=== PATIENT | male | born 1945 | race Caucasian/White ===

== ENCOUNTER → 2020-04-21 | Outpatient (CLI) | payer MEDICARE, BC ==
--- NOTE | 2020-04-21 11:32 | XR ---
EXAMINATION TYPE: XR abdomen 1V DATE OF EXAM: 04/21/2020 11:26 AM CLINICAL HISTORY: Renal stone. TECHNIQUE: Two supine KUB images of the abdomen are obtained. COMPARISON: None. FINDINGS: There is 2 to 3 mm calculus mid pole level right kidney just below the 12th rib. Slightly s uboptimal evaluation of other calculi as there is overlying colonic fecal material noted. Overall nonobstructive bowel gas pattern. Moderate multilevel spurring and disc space narrowing in th e thoracolumbar spine is present. IMPRESSION: As above.
== END | disposition home or self-care (01) ==
LOC: RADXRMAIN 11:13
PROVIDERS: ATTEND Urology
DX: N20.0 Calculus of kidney (principal)
CPT/HCPCS: 74018

== ENCOUNTER 2023-01-25 07:18 | Day surgery (SDC) | payer MEDICARE, BC ==
[2023-01-23 09:07] VITALS: BMI 31.1
--- NOTE | 2023-01-25 06:45 | P.GSHP ---
History of Present Illness H&P Date: 01/25/23 Chief Complaint: Right renal colic The patient is a 77-year-old white male with a history of urolithiasis. He has undergone ureteroscopic removal of calculi on 2 previous occasions. He now presents with a six-week history of right-sided flank discomfort. A KUB x-ray was negative, but computed tomography scan showed a 2 mm right distal ureteral calculus at the ureterovesical junction as well as two right renal calculi (4 and 10 mm). He has elected to undergo ureteroscopic removal of his calculi. - Constitutional Constitutional: Denies chills, Denies fever - Genitourinary (Male) Genitourinary: Reports flank pain, Reports kidney stones, Denies hematuria Past Medical History Past Medical History: GERD/Reflux, Hyperlipidemia, Hypertension Additional Past Medical History / Comment(s): KIDNEY STONES History of Any Multi-Drug Resistant Organisms: None Reported Past Surgical History: Appendectomy, Orthopedic Surgery Additional Past Surgical History / Comment(s): NECK SX ,LT SINUS SX , VARICOSE VEIN SX ,KIDNEY STONE SX X 2 ,COLONOSCOPY BILAT CATARACTS REMOVED WITH LENS IMPLANTS Past Anesthesia/Blood Transfusion Reactions: No Reported Reaction Smoking Status: Former smoker - Past Family History Father Family Medical History: Cancer Mother Family Medical History: Cancer Medications and Allergies Home Medications Medication Instructions Recorded Confirmed Type Fluticasone Nasal [place] [Flonase 2 spray EA NOSTRIL DAILY 01/23/23 01/23/23 History Nasal [place]] Omeprazole 20 mg PO DAILY 01/23/23 01/23/23 History Potassium Citrate [Urocit-K] 1 tab PO BID 01/23/23 01/23/23 History Simvastatin [Zocor] 5 mg PO HS 01/23/23 01/23/23 History Tamsulosin HCl [Flomax] 0.8 mg PO HS 01/23/23 01/23/23 History amLODIPine [Norvasc] 10 mg PO DAILY 01/23/23 01/23/23 History Allergies Allergy/AdvReac Type Severity Reaction Status Date / Time adhesive tape Allergy Rash/Hives Verified 01/23/23 08:59 OLIVIA Inhibitors AdvReac Cough Verified 01/23/23 08:59 acetaminophen [From [place]] AdvReac SEVERE Verified 01/23/23 08:59 CONSTIPATION hydrocodone [From [place]] AdvReac SEVERE Verified 01/23/23 08:59 CONSTIPATION Surgical - Exam - General well developed, well nourished, no distress - Respiratory normal respiratory effort - Abdomen Abdomen: soft, non tender, no guarding, no rigid, no rebound - Genitourinary normal penis with no external lesions, testicles non-tender - Psychiatric oriented to time, oriented to person, oriented to place, speech is normal, memory intact Results - Imaging CT scan - abdomen: report reviewed Assessment and Plan (1) Calculus of ureter Status: Acute Code(s): N20.1 - CALCULUS OF URETER SNOMED Code(s): 24971800 (2) Calculus of kidney Status: Acute Code(s): N20.0 - CALCULUS OF KIDNEY SNOMED Code(s): 66166122 Plan: Cystoscopy, right retrograde pyelogram, right ureteroscopy with Holmium laser lithotripsy and stone basketing, right ureteral stent insertion. The patient is aware of potential risks, which include anesthesia, bleeding, infection, ureteral injury, and inability to remove the calculi in their entirety.
[2023-01-25] MEDS ORDERED: ONDANSETRON 4 MG/2 ML VIAL IVP ONE (07:27)
[2023-01-25] MEDS ORDERED: HYDROmorphone 0.5 MG/0.5 ML SYRINGE IVP PRN (07:27)
[2023-01-25] MEDS ORDERED: DEXAMETHASONE SOD PHOSPHATE 4 MG/ML 1 ML VIAL IV ONE (07:27)
[2023-01-25] MEDS ORDERED: MIDAZOLAM 2 MG/2 ML VIAL IV PRN (07:27)
[2023-01-25] MEDS ORDERED: LACTATED RINGERS 1,000 ML IV SCH (07:27)
[2023-01-25] MEDS ORDERED: LIDOCAINE 1% (10MG/ML) FOR IV START INTRADERMA PRN (07:27)
--- NOTE | 2023-01-25 07:49 | XR ---
EXAMINATION TYPE: XR KUB DATE OF EXAM: 01/25/2023 Comparison: 04/21/2020 Clinical History: 77-year-old male N20.1 N20.0 Right ureteral renal calculi Findings: 2 calcifications in the right mid abdomen measuring 1.0 and 0.5 cm appears larger compared to the exam. 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 Moderate stool burden. Nonobstructive bowel gas pattern. Impression: A couple right renal calculi suggested measuring 10 mm and 5 mm.
[2023-01-25] MEDS ORDERED: GLYCOPYRROLATE 0.2 MG/ML 2 ML VIAL ONE (09:39)
[2023-01-25] MEDS ORDERED: PROPOFOL 10 MG/ML 20 ML VIAL IV ONE (09:39)
[2023-01-25] MEDS ORDERED: LIDOCAINE 2% INJ 20 MG/ML (2 ML VIAL) ONE (09:39)
[2023-01-25] MEDS ORDERED: ROCURONIUM 10 MG/ML (5 ML VIAL) IV ONE (09:39)
[2023-01-25] MEDS ORDERED: fentaNYL (PF) 50 MCG/ML 2 ML AMP ONE (09:39)
[2023-01-25] MEDS ORDERED: MIDAZOLAM 2 MG/2 ML VIAL ONE (09:39)
[2023-01-25] MEDS ORDERED: SUCCINYLCHOLINE CHLORIDE 200 MG/10 ML VIAL IV ONE (09:39)
[2023-01-25] MEDS ORDERED: NEOSTIGMINE 1 MG/ML 10 ML VIAL ONE (09:39)
[2023-01-25] MEDS ORDERED: IOPAMIDOL-370 100ML BTL MISCELLANE ONE (09:44)
[2023-01-25] MEDS ORDERED: LACTATED RINGERS 1,000 ML IV ONE (10:37)
[2023-01-25 11:22] VITALS: TEMP 96.9
--- NOTE | 2023-01-25 12:14 | FL ---
EXAMINATION TYPE: FL guidance operating room DATE OF EXAM: 01/25/2023 FLUOROSCOPY Fluoroscopy time of 1 minute 33 seconds was used during urologic intervention for right kidney stone. 12 image/s document/s the procedure. Total DAP: 6.2
[2023-01-25 12:22] VITALS: RESP 18
[2023-01-25 13:07] VITALS: BP 154/78; PULSE 78
--- NOTE | 2023-01-25 13:18 | P.OP ---
Date of Procedure: 01/25/23 Preoperative Diagnosis: Right ureteral calculus, right renal calculi Postoperative Diagnosis: Right renal calculi Procedure(s) Performed: Cystoscopy, bilateral retrograde pyelograms, right ureteroscopy with Holmium laser lithotripsy and stone basketing, right ureteral stent insertion Anesthesia: MANUEL Surgeon: Tamir Hoyt Estimated Blood Loss (ml): 10 IV fluids (ml): 900 Pathology: other (Calculus fragments, sent for chemical analysis) Condition: stable Disposition: PACU Indications for Procedure: The patient is a 77-year-old white male with a history of urolithiasis. He has undergone ureteroscopic removal of calculi on 2 previous occasions. He now presents with a six-week history of right-sided flank discomfort. A KUB x-ray was negative, but computed tomography scan showed a 2 mm right distal ureteral calculus at the ureterovesical junction as well as two right renal calculi (4 and 10 mm). He has elected to undergo ureteroscopic removal of his calculi. Operative Findings: 2 right renal calculi, both fragmented and removed. Description of Procedure: The patient was taken to the operating room and placed in the dorsolithotomy position, with legs supported in Alex stirrups. The external genitalia was prepped and draped sterilely. The 30 lens was used to introduce the 21-[place] Perez cystoscopic sheath through the urethra and into the bladder under direct vision. The prostatic urethra showed evidence of lateral lobe enlargement. The bladder was examined in its entirety. Both ureteral orifices were normal anatomic location and configuration, and clear urine effluxed from both. No tumors were seen. Some gravel consistent with active stone disease was seen within the bladder. This was easily removed from the bladder via irrigation. Using a 10-[place] cone-tipped catheter, bilateral retrograde pyelograms were performed. No ureteral calculi were seen. The ureters were normal in course and caliber, and there was no evidence of hydronephrosis. A 0.038 inch Glidewire was passed through the cystoscope. The right ureteral orifice was cannulated, and the Glidewire was advanced up to the renal pelvis. The cystoscope was removed, and an 11/13-[place] ureteral access catheter was passed over the wire, up to the proximal ureter. The Perez [place] [employer] [place] flexible ureteroscope was then passed through the ureteral access catheter sheath and advanced under direct vision through the proximal ureter and up to the right renal pelvis. Each calyx was examined. Calculi were seen within a lower pole calyx and an upper pole calyx, as expected. No additional calculi were seen. The 272 micron Holmium laser probe was passed through the ureteroscope, and lithotripsy was performed to fragment the lower pole calculus. This was done utilizing a dusting mode, but ultimately several fragments broke away and these were removed using a 1.5-[place] nitinol 0 tip basket. Once it was confirmed that this calculus had been removed completely, attention was paid to the upper pole calculus. This also was dusted, though ultimately it broke into fragments which were removed using the stone basket. However, the proximal ureter was somewhat tortuous, making passage of the ureteroscope difficult, so rather than basketing the remaining fragments they were broken down using the laser in a popcorning mode. This resulted in gravel, with no calculus fragments exceeding 1 mm in size. Both calculi were visible on fluoroscopy when the procedure began, but at this stage of the procedure no calculi could be seen on fluoroscopy. The Glidewire was passed through the ureteral access catheter sheath, which was removed along with the ureteroscope. The Glidewire was backloaded into the cystoscope, which was passed into the bladder. A 28 centimeters, 4.8-[place] double-J ureteral stent was placed over the wire. Proper stent positioning was verified fluoroscopically and endoscopically. The bladder was emptied and the cystoscope removed. The string was left attached to the stent, and it was secured to the patient's penis using a Tegaderm dressing. The patient tolerated the procedure well and was taken to the recovery room in stable condition. Anadys Report: Procedure Acuity: Semi-Urgent Stone Size and Location: 1 cm, right upper pole. 5 mm, right lower pole. Ureteral Dilation: No Ureteral Access Sheath Used: Yes Stone Sent for Analysis: Yes All Stones/Fragments Were Removed with a Basket: No Complications: No Preoperative Antibiotics Given: Yes Stent Placed: Yes If Stent Placed, Was String Left Attached: Yes If Stent Placed, When is it to be Removed: 1 week Discharge Medications: Toradol
== END 2023-01-25 13:07 | disposition home or self-care (01) ==
LOC: OR 07:18
PROVIDERS: ATTEND Urology
DX: N20.2 Calculus of kidney with calculus of ureter (principal); K21.9 Gastro-esophageal reflux disease without esophagitis; E78.5 Hyperlipidemia, unspecified; I10 Essential (primary) hypertension; Z90.49 Acquired absence of other specified parts of digestive tract; Z98.890 Other specified postprocedural states; Z87.891 Personal history of nicotine dependence; Z88.8 Allergy status to other drugs, medicaments and biological substances; Z80.8 Family history of malignant neoplasm of other organs or systems; Z79.899 Other long term (current) drug therapy; Z88.5 Allergy status to narcotic agent; Z91.048 Other nonmedicinal substance allergy status
CPT/HCPCS: 52356; 74420; 82365; 74018; C2625; C1758; J2250; J0330; J1100; J2710; J0690; J2405; J3010; J2704; Q9967; J2001

== ENCOUNTER 2024-05-08 09:17 | Day surgery (SDC) | payer MEDICARE, BC ==
--- NOTE | 2024-05-07 07:05 | P.GSHP ---
History of Present Illness H&P Date: 05/07/24 Chief Complaint: Groin pain The patient is a 78-year-old white male with a history of urolithiasis. His calculi are of calcium composition. He takes potassium citrate for stone prevention. He has recently experienced right flank and right groin pain. CT scan shows a nonobstructing 3 mm right lower pole renal calculus, as well as multiple small bladder calculi. He has elected to undergo removal of the bladder calculi. - Genitourinary (Male) Genitourinary: Reports flank pain, Reports kidney stones, Denies dysuria, Denies hematuria Past Medical History Past Medical History: GERD/Reflux, Hyperlipidemia, Hypertension Additional Past Medical History / Comment(s): KIDNEY STONES History of Any Multi-Drug Resistant Organisms: None Reported Past Surgical History: Appendectomy, Orthopedic Surgery Additional Past Surgical History / Comment(s): NECK SX ,LT SINUS SX , VARICOSE VEIN SX ,KIDNEY STONE SX X 2 ,COLONOSCOPY BILAT CATARACTS REMOVED WITH LENS IMPLANTS Past Anesthesia/Blood Transfusion Reactions: No Reported Reaction Smoking Status: Former smoker - Past Family History Father Family Medical History: Cancer Mother Family Medical History: Cancer Medications and Allergies Home Medications Medication Instructions Recorded Confirmed Type Fluticasone Nasal [place] [Flonase 2 spray EA NOSTRIL DAILY 01/23/23 01/23/23 History Nasal [place]] Omeprazole 20 mg PO DAILY 01/23/23 01/23/23 History Potassium Citrate [Urocit-K] 1 tab PO BID 01/23/23 01/23/23 History Simvastatin [Zocor] 5 mg PO HS 01/23/23 01/23/23 History Tamsulosin HCl [Flomax] 0.8 mg PO HS 01/23/23 01/23/23 History amLODIPine [Norvasc] 10 mg PO DAILY 01/23/23 01/23/23 History Ketorolac [Toradol] 10 mg PO Q6HR PRN #10 tab 01/25/23 Rx Allergies Allergy/AdvReac Type Severity Reaction Status Date / Time adhesive tape Allergy Rash/Hives Verified 01/25/23 07:58 OLIVIA Inhibitors AdvReac Cough Verified 01/25/23 07:58 acetaminophen [From [place]] AdvReac SEVERE Verified 01/25/23 07:58 CONSTIPATION hydrocodone [From [place]] AdvReac SEVERE Verified 01/25/23 07:58 CONSTIPATION Surgical - Exam - General well developed, well nourished, no distress - Respiratory normal respiratory effort - Abdomen Abdomen: soft, non tender, no guarding, no rigid, no rebound Hernia: none - Genitourinary normal penis with no external lesions, testicles non-tender - Psychiatric oriented to time, oriented to person, oriented to place, speech is normal, memory intact Results - Imaging CT scan - abdomen: report reviewed Assessment and Plan (1) Calculus in bladder Status: Acute Code(s): N21.0 - CALCULUS IN BLADDER SNOMED Code(s): 88589553 Plan: Cystoscopy with cystolithotripsy. The procedure has been reviewed in detail with the patient. He has been made aware of potential risks, which include anesthesia, bleeding, infection, bladder perforation, and postoperative urinary retention.
[~2024-05-08 09:17] MED LIST: LIDOCAINE 1% (10MG/ML) FOR IV START INTRADERMA PRN; droPERidol 5 MG/2 ML VIAL IVP ONE; fentaNYL (PF) 50 MCG/ML 2 ML AMP IV PRN
[2024-05-08] MEDS: IV FLUID CONTINUATION 1,000 ML IV ONE (09:49)
[2024-05-08 09:53] VITALS: RESP 16
--- NOTE | 2024-05-08 09:53 | XR ---
EXAMINATION TYPE: XR KUB DATE OF EXAM: 05/08/2024 HISTORY: Pain Comparison: 01/25/2023 Single KUB is submitted for interpretation. Findings: Right renal calculi: None Visualized. Right ureteral calculi: None Visualized. Left renal calculi: None Visualized. Left ureteral calculi: None Visualized. Pelvic calcifications: None Visualized. Bowel gas pattern is unremarkable. No free air. No mass effects. IMPRESSION: 1. No radiopaque calculi are visualized certainty at this time.
[2024-05-08] MEDS: LACTATED RINGERS 1,000 ML IV SCH (10:05)
[2024-05-08] MEDS: ONDANSETRON 4 MG/2 ML VIAL IVP ONE (10:05)
[2024-05-08] MEDS: DEXAMETHASONE SOD PHOSPHATE 4 MG/ML 1 ML VIAL IV ONE (10:06)
[2024-05-08] MEDS ORDERED: ROCURONIUM 10 MG/ML (5 ML VIAL) IV ONE (12:05)
[2024-05-08] MEDS ORDERED: PROPOFOL 10 MG/ML 20 ML VIAL IV ONE (12:05)
[2024-05-08] MEDS ORDERED: SUCCINYLCHOLINE CHLORIDE 200 MG/10 ML VIAL IV ONE (12:05)
[2024-05-08] MEDS ORDERED: MIDAZOLAM 2 MG/2 ML VIAL ONE (12:05)
[2024-05-08] MEDS ORDERED: fentaNYL (PF) 50 MCG/ML 2 ML AMP ONE (12:05)
[2024-05-08] MEDS ORDERED: LIDOCAINE 1% INJ 10MG/ML (20 ML MDV) ONE (12:05)
--- NOTE | 2024-05-08 12:46 | P.OP ---
Date of Procedure: 05/08/24 Preoperative Diagnosis: Bladder calculi Postoperative Diagnosis: Same Procedure(s) Performed: Cystoscopy, removal of bladder calculi, fulguration of prostatic bleeders Anesthesia: GLORIAA Surgeon: Tamir Hoyt Estimated Blood Loss (ml): 10 IV fluids (ml): 400 Pathology: none sent Condition: stable Disposition: PACU Indications for Procedure: The patient is a 78-year-old white male with a history of urolithiasis. His calculi are of calcium composition. He takes potassium citrate for stone prevention. He has recently experienced right flank and right groin pain. CT scan shows a nonobstructing 3 mm right lower pole renal calculus, as well as multiple small bladder calculi. He has elected to undergo removal of the bladder calculi. Operative Findings: Multiple tiny calculi removed from the bladder. Anterior bleeders within the prostatic urethra fulgurated. Description of Procedure: The patient was taken to the operating room and placed in the dorsal lithotomy position, with legs supported in Alex stirrups. The external genitalia was prepped and draped sterilely. The 30 lens was used to introduce the 21-[place] Perez cystoscopic sheath through the urethra and into the bladder under direct vision. The urethra appeared normal. The prostate showed evidence of significant lateral lobe enlargement resulting in visual occlusion. The bladder was examined in its entirety. The ureteral orifices appeared normal. No tumors were seen. No diverticuli were seen. Multiple small calculi were seen, which were removed through the cystoscope. Repeat cystoscopy showed no residual calculi within the bladder. However, oozing from the anterior aspect of the prostatic urethra, just distal to the vesical neck, was noted. The Bugbee electrode was used to fulgurate the bleeders, attaining adequate hemostasis. The bladder was emptied and the cystoscope removed. The patient tolerated the procedure well was taken to the recovery room in stable condition.
[2024-05-08 12:50] VITALS: TEMP 97.1
[2024-05-08 13:53] VITALS: BP 144/69; PULSE 74
== END 2024-05-08 14:22 | disposition home or self-care (01) ==
LOC: OR 09:17
PROVIDERS: ATTEND Urology
DX: N21.0 Calculus in bladder (principal); E78.5 Hyperlipidemia, unspecified; I10 Essential (primary) hypertension; K21.9 Gastro-esophageal reflux disease without esophagitis; Z87.891 Personal history of nicotine dependence; Z88.5 Allergy status to narcotic agent; Z90.49 Acquired absence of other specified parts of digestive tract; Z79.899 Other long term (current) drug therapy
CPT/HCPCS: 74018; 52317; C1758 ×3; C1769; C1894; J2250; J0330; J1100; J0690; J2405; J2001; J3010; J2704

== ENCOUNTER → 2024-11-21 | Outpatient (CLI) | payer MEDICARE, BC ==
--- NOTE | 2024-11-21 11:29 | XR ---
EXAMINATION TYPE: XR KUB DATE OF EXAM: 11/21/2024 10:14 AM COMPARISON: 05/08/2024 CLINICAL INDICATION: Male, 79 years old with history of N20.0 CALCULUS OF KIDNEY, TECHNIQUE: XR KUB view(s) obtained. FINDINGS: There is a normal bowel gas pattern. Fecal retention is present. Psoas margins are normal. No organomegaly is present. Degenerative changes of the lumbar spine. No significant interval change IMPRESSION: 1. Mild fecal retention. [facility], , 11/21/2024 11:27 AM
== END | disposition home or self-care (01) ==
LOC: RADXRMAIN 09:28
PROVIDERS: ATTEND Urology
DX: N20.0 Calculus of kidney (principal); K59.09 Other constipation
CPT/HCPCS: 74018

== ENCOUNTER → 2024-11-26 | Outpatient (CLI) | payer MEDICARE, BC ==
--- NOTE | 2024-11-26 14:44 | CT ---
EXAMINATION TYPE: CT abdomen pelvis wo con DATE OF EXAM: 11/26/2024 COMPARISON: None CLINICAL INDICATION: Male, 79 years old with history of N20.0 CALCULUS OF KIDNEY; PHH, RT GROIN PAIN, HX RENAL STONES, SX TECHNIQUE: CT scan of the abdomen and pelvis is performed without oral or IV contrast. CT DLP: [address] CTDI: mGy Automated exposure control for dose reduction was used. FINDINGS: Within the limitations of a non-contrast study, the following observations are made. There is a 7.5 mm right lower lobe pulmonary nodule. CT thorax is recommended to evaluate the lung pa renchyma and its entirety. Gallbladder is normal and there is no gallstone, wall thickening, pericholecystic fluid or distention . There is no biliary ductal dilatation. There is no organomegaly of the liver, pancreas, spleen or adrenal glands. There is a 2 mm nonobstructing right renal calculus. There is no left renal calculus. There is no hyd ronephrosis. The caliber of the abdominal aorta is normal and there is no retroperitoneal adenopathy or hemorrhage . The bowel loops are normal in caliber is no evidence of obstruction. No inflammatory changes are iden tified in the mesentery and there is no free intraperitoneal air or fluid. There is no pelvic mass, free fluid, abscess or adenopathy. There is moderate to marked prostatic hyp ertrophy. There is marked degenerative disc disease L2-S1 but there are no destructive osseous lesions. IMPRESSION: 1. 2 mm nonobstructing right renal calculus. 2. No hydronephrosis bilaterally. 3. Moderate to marked prostatic hypertrophy 4. 7.5 mm right lower lobe pulmonary nodule. CT of the thorax is recommended to evaluate the lung par enchyma and its entirety. [facility], , 11/26/2024 2:42 PM
== END | disposition home or self-care (01) ==
LOC: RADCTMAIN 13:46
PROVIDERS: ATTEND Urology
DX: N20.0 Calculus of kidney (principal); N40.0 Benign prostatic hyperplasia without lower urinary tract symptoms; R91.1 Solitary pulmonary nodule; Z87.442 Personal history of urinary calculi
CPT/HCPCS: 74176

== ENCOUNTER → 2024-12-05 | Outpatient (CLI) | payer MEDICARE, BC ==
[2024-12-05 13:17] LABS: African American GFR (CKD) 87 (>60 ml/min/1.73 sqM); Blood Urea Nitrogen 17 mg/dL (9-20); Non-African American GFR(CKD) 76 (>60 ml/min/1.73 sqM)
--- NOTE | 2024-12-05 14:02 | CT ---
EXAMINATION TYPE: CT chest w con CT DLP: 457.1 mGycm, Automated exposure control for dose reduction was used. DATE OF EXAM: 12/05/2024 1:49 PM COMPARISON: CT abdomen and pelvis 11/26/2024 CLINICAL INDICATION:Male, 79 years old with history of R91.1 SOLITARY PULMONARY NODULE; PHH, nodules TECHNIQUE: Multiple axial images were obtained through the chest following the administration of 100 cc of Isovue 300. . Coronal and sagittal reformats reviewed. FINDINGS: LUNGS/ PLEURA: No pleural effusion, pneumothorax, or focal consolidation. Regions of anterior upper l obe linear scarring. Right lower lobe 7 mm pulmonary nodule (series 4, image 49). AIRWAY: Patent and unremarkable.. HEART: Size within normal limits.No pericardial effusion. Small coronary artery calcifications. MEDIASTINUM: No evidence of adenopathy. VASCULATURE: No aortic aneurysm. Mild atherosclerotic calcification of the aorta and its branches. MUSCULOSKELETAL: No acute osseous abnormalities. DISH of the thoracic spine. SOFT TISSUES/LYMPH NODES: Unremarkable. LOWER NECK: No significant findings. UPPER ABDOMEN: Small hiatal hernia. IMPRESSION: 1. No acute thoracic process. 2. Right lower lobe 7 mm pulmonary nodule. Follow-up CT chest in 6-12 months is recommended. 3. Bilateral anterior upper lobe regions of reticular scarring. [facility], , 12/05/2024 2:00 PM
== END | disposition home or self-care (01) ==
LOC: RADCTMAIN 12:38
PROVIDERS: ATTEND Urology
DX: R91.1 Solitary pulmonary nodule (principal); J98.4 Other disorders of lung
CPT/HCPCS: 82565; 84520; 71260; 36415; Q9967